=== PATIENT | male | born 1990 | race Asian ===

== ENCOUNTER → 2018-07-20 13:20 | Outpatient (CLI) | payer OTHER, SELFPAY ==
--- NOTE | 2018-07-20 | DI.MRI.S_ITS ---
PROCEDURE: MR ANKLE LT WO CON INDICATIONS: Left heel and lateral ankle pain TECHNIQUE: Noncontrast sagittal T1 spin echo and T2 fast spin echo with fat saturation, axial proton density fast spin echo and T2 fast spin echo with fat saturation, coronal T1 spin echo and T2 fast spin echo with fat saturation through the ankle/hindfoot. COMPARISON: None. FINDINGS: Image quality: Excellent. Bones and joints: No bone marrow contusions or fractures. There is mild edema within the calcaneus adjacent to the sinus tarsi likely representing reactive changes. No hindfoot coalitions. No osteochondral injuries of the talar dome. There is a small tibiotalar joint effusion. Medial structures: The posterior tibialis, flexor digitorum longus, and flexor hallucis longus tendons are intact with trace tenosynovial fluid. The posterior tibial neurovascular bundle appears normal within the tarsal tunnel, without extrinsic mass effect. The deltoid and spring ligaments appear intact. Lateral structures: The anterior talofibular, calcaneofibular, and posterior talofibular ligaments appear intact. More superiorly, the anterior and posterior tibiofibular ligaments appear intact, as is the intermalleolar ligament. The tibiofibular syndesmosis is normal in width at 2 mm or less. The peroneus longus and brevis tendons demonstrate normal location and morphology. Adjacent bony peroneal tubercle and retrotrochlear prominence are normal in size. The sinus tarsi demonstrates some preserved fat signal but there is mild edema with small noted. Findings are compatible with sequelae of ligamentous sprains. The calcaneonavicular and calcaneocuboid components of the bifurcate ligament appear intact. The dorsal calcaneocuboid ligament appears intact. Anterior structures: The tibialis anterior, extensor hallucis longus, and extensor digitorum longus tendons appear intact. The dorsal talonavicular ligament appears intact. Posterior and plantar structures: Achilles tendon is intact. Medial and lateral bands of the plantar fascia are of normal thickness. No abductor digiti quinti muscle atrophy to suggest Esparza neuropathy. IMPRESSION: 1. Mild edema and cystic changes within the sinus tarsi suggesting sequelae of ligamentous sprains. There is also mild adjacent edema in the calcaneus which is likely reactive. 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 Dictated by: Sylvain Main M.D. on 07/20/2018 at 15:41 Approved by: Sylvain Main M.D. on 07/20/2018 at 15:47
== END ==
PROVIDERS: Visit Provider Family Medicine
DX: M25.572 Pain in left ankle and joints of left foot (principal)
CPT/HCPCS: 73721

== ENCOUNTER 2018-08-09 13:40 | Emergency (ER) | payer OTHER, SELFPAY ==
--- NOTE | 2018-08-09 14:04 | ED.URI ---
HPI - URI/Sore Throat <Radha Garcia PA-C - Last Filed: 08/09/18 17:10> General Chief Complaint: Fever Stated Complaint: COUGH FEVER Time Seen by Provider: 08/09/18 13:51 Source: patient Mode of arrival: ambulatory Limitations: no limitations History of Present Illness HPI Narrative: This 28-year-old male comes to ED with 1 month history of cough, which started with wet green sputum, worse in the morning. He states after 2 weeks, he started to have some slight blood tinge in the sputum at times which is now more white and cough is more dry in general. He states at times he has difficulty catching his breath when he is coughing, otherwise no dyspnea or wheeze. He describes some sinus headache at times and headache with coughing. Sometimes notes sore neck muscles. He denies any fever at home. States that he had chills during the 1st couple of weeks at night but now none. He denies nasal drainage. He states he has mild earache bilaterally, has not had sore throat. Normal p.o. intake. No rashes. He denies any exposures or recent travel. He states he saw PCP about 2 weeks ago and was told that his cough is viral. He has tried treating with mjll-kzj-dentrna medications. He is a smoker. No history of asthma or respiratory disease. Vaccines are up-to-date Related Data Previous Rx's Medication Instructions Recorded albuterol sulfate 2 puff INHALATION Q4H PRN #8.5 gram 08/09/18 Review of Systems <Radha Garcia PA-C - Last Filed: 08/09/18 17:10> Review of Systems ROS Unobtainable: All systems reviewed & are unremarkable except as noted in HPI and below PFSH <MARK Sanchez Last Filed: 08/09/18 17:10> Medical History Gout (Chronic) Surgical History History of bunionectomy (Resolved) Status post shoulder surgery (Resolved) Social History Smoking Status: Current every day smoker Social History Smoking Status: Current every day smoker Exam <MARK Sanchez Last Filed: 08/09/18 17:10> Narrative Exam Narrative: GENERAL APPEARANCE: Patient sitting comfortably, in no distress. HEAD: Mild frontal TTP EYES: PERRL, EOMI. EARS: Normal auditory canals, TMS intact with normal light reflexes. ORAL CAVITY: Normal oropharynx. THROAT:Mild erythema and a little PND noted, no exudate NECK/THYROID: Neck supple, full range of motion, shotty anterior cervical lymphadenopathy. LUNGS: Clear to auscultation bilaterally, clear to percussion, frequent dry cough on exam. HEART: RRR without murmur, nl S1, S2, no S3 or S4. Initial Vital Signs Initial Vital Signs: Vital Signs Temperature 98.6 F 08/09/18 14:06 Pulse Rate 91 H 08/09/18 14:06 Respiratory Rate 14 08/09/18 14:06 Blood Pressure 127/85 08/09/18 14:06 Pulse Oximetry 100 08/09/18 14:06 <Thee Maldonado DO - Last Filed: 08/09/18 17:15> Initial Vital Signs Initial Vital Signs: Vital Signs Temperature 98.6 F 08/09/18 14:06 Pulse Rate 91 H 08/09/18 14:06 Respiratory Rate 14 08/09/18 14:06 Blood Pressure 127/85 08/09/18 14:06 Pulse Oximetry 100 08/09/18 14:06 Course <Radha Garcia PA-C - Last Filed: 08/09/18 17:10> Orders Ordered: ED Orders 08/09/18 14:08 Influenza A and B by PCR Rapid Stat 08/09/18 14:37 XR chest 2V Stat Discontinued Medications Albuterol (Ventolin) 2.5 mg INH NOW ONE Stop: 08/09/18 14:38 Last Admin: 08/09/18 15:28 Dose: 2.5 mg Vital Signs - 8 hr 08/09/18 14:06 08/09/18 15:31 08/09/18 15:40 Temperature 98.6 F Pulse Rate 91 H 80 80 Respiratory Rate 14 20 Blood Pressure 127/85 Blood Pressure [Right Arm] 143/80 H Pulse Oximetry 100 98 96 <Thee Maldonado DO - Last Filed: 08/09/18 17:15> Orders Ordered: ED Orders 08/09/18 14:08 Influenza A and B by PCR Rapid Stat 08/09/18 14:37 XR chest 2V Stat Discontinued Medications Albuterol (Ventolin) 2.5 mg INH NOW ONE Stop: 08/09/18 14:38 Last Admin: 08/09/18 15:28 Dose: 2.5 mg Vital Signs - 8 hr 08/09/18 14:06 08/09/18 15:31 08/09/18 15:40 Temperature 98.6 F Pulse Rate 91 H 80 80 Respiratory Rate 14 20 Blood Pressure 127/85 Blood Pressure [Right Arm] 143/80 H Pulse Oximetry 100 98 96 MDM - URI/Sore Throat <Radha Garcia PA-C - Last Filed: 08/09/18 17:10> Lab Data Lab Results 08/09/18 Range/Units 14:08 Influenza A & B (PCR) Positive, type a A (Negative) Imaging Data Chest x-ray: Radiologist's impression: [address] [address] XRay Report Signed Patient: KAROLINA WEATHERS#: [id number] : 1990Acct:[id number] Age/Sex: 28 / MDate of Service: 08/09/18 Loc: Accession Number: [id number] Procedure: XR chest 2V Ordering Provider: Radha Garcia P.A-C PROCEDURE: XR CHEST 2V INDICATIONS: cough x 1 mo, hemoptysis TECHNIQUE: 2 views of the chest were acquired. COMPARISON: None. FINDINGS: Surgical changes and devices: Linear density projecting over the right humeral diaphysis, unknown etiology and may be external to patient. Lungs and pleura: Lungs are clear. No pleural effusions or pneumothorax. Mediastinum: Mediastinal contours are normal. Heart size is normal. Bones and chest wall: No suspicious bony abnormalities. Soft tissues appear unremarkable. IMPRESSION: No acute disease Dictated by: Jean Leo M.D. on 08/09/2018 at 15:17 Approved by: Jean Leo M.D. on 08/09/2018 at 15:18 <Thee Maldonado DO - Last Filed: 08/09/18 17:15> Lab Data Lab Results 08/09/18 Range/Units 14:08 Influenza A & B (PCR) Positive, type a A (Negative) Discharge Plan Departure Patient Disposition: Home Clinical Impression: Influenza Reactive airway disease Qualifiers: Asthma severity: mild Asthma persistence: intermittent Asthma complication type: with acute exacerbation Qualified Code(s): J45.21 - Mild intermittent asthma with (acute) exacerbation Discharge Date/Time: 08/09/18 16:15 Interventions: ED Discharge Assessment Last Done: 08/09/18 16:14 Instructions: DI for Influenza -- Adult, DI for Reactive Airway Disease-Adult Activity Restrictions/Additional Instructions: Please use the inhaler I have prescribed for you as often as needed for cough or tight chest. Use it with the spacer that the respiratory therapist gave you. Take ibuprofen 800 mg every 8 hr as needed for body aches and cough. You can continue any other hyai-amh-redahyt medicines or lozenges that you wish if they are helpful. Please stay home from work until your cough is resolved and you are feeling better. You should plan on being off of work for this week. You should return to the ED right away if you have worsening symptoms such as acute difficulty breathing or high fever is not responding to zezp-buv-qtpmpgx medications. Your testing showed that you have the flu today, however there was not pneumonia or another new problem found on your chest x-ray. You also have reactive airways, which is inflammation in your lungs and airways likely contributing to her cough and tight chest. Since the breathing treatment we gave you helped, I have prescribed an inhaler for you which is the same medicine. Prescriptions: New albuterol sulfate 90 mcg/actuation HFA aerosol inhaler 2 puff INHALATION Q4H PRN (Reason: cough/tight chest) Qty: 8.5 RF: 0 Referrals: [facility] [Provider Group] Stand Alone Forms: Work Release Note <Thee Maldonado, - Last Filed: 08/09/18 17:15> [facility] Attending Madonna Attestation: I was available for consultation during this patient's emergency department encounter
[2018-08-09 14:06] VITALS: BP 127/85; PULSE 91; RESP 14; TEMP 37; O2SAT 100
--- NOTE | 2018-08-09 14:37 | DI.RAD.S_ITS ---
PROCEDURE: XR CHEST 2V INDICATIONS: cough x 1 mo, hemoptysis TECHNIQUE: 2 views of the chest were acquired. COMPARISON: None. FINDINGS: Surgical changes and devices: Linear density projecting over the right humeral diaphysis, unknown etiology and may be external to patient. Lungs and pleura: Lungs are clear. No pleural effusions or pneumothorax. Mediastinum: Mediastinal contours are normal. Heart size is normal. Bones and chest wall: No suspicious bony abnormalities. Soft tissues appear unremarkable. IMPRESSION: No acute disease Dictated by: Jean Leo M.D. on 08/09/2018 at 15:17 Approved by: Jean Leo M.D. on 08/09/2018 at 15:18
--- NOTE | 2018-08-09 14:56 | ED_ITS ---
HPI - URI/Sore Throat <Radha Garcia PA-C - Last Filed: 08/09/18 17:10> General Chief Complaint: Fever Stated Complaint: COUGH FEVER Time Seen by Provider: 08/09/18 13:51 Source: patient Mode of arrival: ambulatory Limitations: no limitations History of Present Illness HPI Narrative: This 28-year-old male comes to ED with 1 month history of cough, which started with wet green sputum, worse in the morning. He states after 2 weeks, he started to have some slight blood tinge in the sputum at times which is now more white and cough is more dry in general. He states at times he has difficulty catching his breath when he is coughing, otherwise no dyspnea or wheeze. He describes some sinus headache at times and headache with coughing. Sometimes notes sore neck muscles. He denies any fever at home. States that he had chills during the 1st couple of weeks at night but now none. He denies nasal drainage. He states he has mild earache bilaterally, has not had sore throat. Normal p.o. intake. No rashes. He denies any exposures or recent travel. He states he saw PCP about 2 weeks ago and was told that his cough is viral. He has tried treating with mlud-kgz-azcrlml medications. He is a smoker. No history of asthma or respiratory disease. Vaccines are up-to-date Related Data Previous Rx's Medication Instructions Recorded albuterol sulfate 2 puff INHALATION Q4H PRN #8.5 gram 08/09/18 Review of Systems <Radha Garcia PA-C - Last Filed: 08/09/18 17:10> Review of Systems ROS Unobtainable: All systems reviewed & are unremarkable except as noted in HPI and below PFSH <MARK Sanchez Last Filed: 08/09/18 17:10> Medical History Gout (Chronic) Surgical History History of bunionectomy (Resolved) Status post shoulder surgery (Resolved) Social History Smoking Status: Current every day smoker Social History Smoking Status: Current every day smoker Exam <MARK Sanchez Last Filed: 08/09/18 17:10> Narrative Exam Narrative: GENERAL APPEARANCE: Patient sitting comfortably, in no distress. HEAD: Mild frontal TTP EYES: PERRL, EOMI. EARS: Normal auditory canals, TMS intact with normal light reflexes. ORAL CAVITY: Normal oropharynx. THROAT:Mild erythema and a little PND noted, no exudate NECK/THYROID: Neck supple, full range of motion, shotty anterior cervical lymphadenopathy. LUNGS: Clear to auscultation bilaterally, clear to percussion, frequent dry cough on exam. HEART: RRR without murmur, nl S1, S2, no S3 or S4. Initial Vital Signs Initial Vital Signs: Vital Signs Temperature 98.6 F 08/09/18 14:06 Pulse Rate 91 H 08/09/18 14:06 Respiratory Rate 14 08/09/18 14:06 Blood Pressure 127/85 08/09/18 14:06 Pulse Oximetry 100 08/09/18 14:06 <Thee Maldonado DO - Last Filed: 08/09/18 17:15> Initial Vital Signs Initial Vital Signs: Vital Signs Temperature 98.6 F 08/09/18 14:06 Pulse Rate 91 H 08/09/18 14:06 Respiratory Rate 14 08/09/18 14:06 Blood Pressure 127/85 08/09/18 14:06 Pulse Oximetry 100 08/09/18 14:06 Course <Radha Garcia PA-C - Last Filed: 08/09/18 17:10> Orders Ordered: ED Orders 08/09/18 14:08 Influenza A and B by PCR Rapid Stat 08/09/18 14:37 XR chest 2V Stat Discontinued Medications Albuterol (Ventolin) 2.5 mg INH NOW ONE Stop: 08/09/18 14:38 Last Admin: 08/09/18 15:28 Dose: 2.5 mg Vital Signs - 8 hr 08/09/18 14:06 08/09/18 15:31 08/09/18 15:40 Temperature 98.6 F Pulse Rate 91 H 80 80 Respiratory Rate 14 20 Blood Pressure 127/85 Blood Pressure [Right Arm] 143/80 H Pulse Oximetry 100 98 96 <Thee Maldonado DO - Last Filed: 08/09/18 17:15> Orders Ordered: ED Orders 08/09/18 14:08 Influenza A and B by PCR Rapid Stat 08/09/18 14:37 XR chest 2V Stat Discontinued Medications Albuterol (Ventolin) 2.5 mg INH NOW ONE Stop: 08/09/18 14:38 Last Admin: 08/09/18 15:28 Dose: 2.5 mg Vital Signs - 8 hr 08/09/18 14:06 08/09/18 15:31 08/09/18 15:40 Temperature 98.6 F Pulse Rate 91 H 80 80 Respiratory Rate 14 20 Blood Pressure 127/85 Blood Pressure [Right Arm] 143/80 H Pulse Oximetry 100 98 96 MDM - URI/Sore Throat <Radha Garcia PA-C - Last Filed: 08/09/18 17:10> Lab Data Lab Results 08/09/18 Range/Units 14:08 Influenza A & B (PCR) Positive, type a A (Negative) Imaging Data Chest x-ray: Radiologist's impression: [address] [address] XRay Report Signed Patient: KAROLINA WEATHERS#: [id number] : 1990Acct:[id number] Age/Sex: 28 / MDate of Service: 08/09/18 Loc: Accession Number: [id number] Procedure: XR chest 2V Ordering Provider: Radha Garcia P.A-C PROCEDURE: XR CHEST 2V INDICATIONS: cough x 1 mo, hemoptysis TECHNIQUE: 2 views of the chest were acquired. COMPARISON: None. FINDINGS: Surgical changes and devices: Linear density projecting over the right humeral diaphysis, unknown etiology and may be external to patient. Lungs and pleura: Lungs are clear. No pleural effusions or pneumothorax. Mediastinum: Mediastinal contours are normal. Heart size is normal. Bones and chest wall: No suspicious bony abnormalities. Soft tissues appear unremarkable. IMPRESSION: No acute disease Dictated by: Jean Leo M.D. on 08/09/2018 at 15:17 Approved by: Jean Leo M.D. on 08/09/2018 at 15:18 <Thee Maldonado DO - Last Filed: 08/09/18 17:15> Lab Data Lab Results 08/09/18 Range/Units 14:08 Influenza A & B (PCR) Positive, type a A (Negative) Discharge Plan Departure Patient Disposition: Home Clinical Impression: Influenza Reactive airway disease Qualifiers: Asthma severity: mild Asthma persistence: intermittent Asthma complication type: with acute exacerbation Qualified Code(s): J45.21 - Mild intermittent asthma with (acute) exacerbation Discharge Date/Time: 08/09/18 16:15 Interventions: ED Discharge Assessment Last Done: 08/09/18 16:14 Instructions: DI for Influenza -- Adult, DI for Reactive Airway Disease-Adult Activity Restrictions/Additional Instructions: Please use the inhaler I have prescribed for you as often as needed for cough or tight chest. Use it with the spacer that the respiratory therapist gave you. Take ibuprofen 800 mg every 8 hr as needed for body aches and cough. You can continue any other eena-khw-ghezwha medicines or lozenges that you wish if they are helpful. Please stay home from work until your cough is resolved and you are feeling better. You should plan on being off of work for this week. You should return to the ED right away if you have worsening symptoms such as acute difficulty breathing or high fever is not responding to nzod-ngc-xnqcamz medications. Your testing showed that you have the flu today, however there was not pneumonia or another new problem found on your chest x-ray. You also have reactive airways, which is inflammation in your lungs and airways likely contributing to her cough and tight chest. Since the breathing treatment we gave you helped, I have prescribed an inhaler for you which is the same medicine. Prescriptions: New albuterol sulfate 90 mcg/actuation HFA aerosol inhaler 2 puff INHALATION Q4H PRN (Reason: cough/tight chest) Qty: 8.5 RF: 0 Referrals: [email or web address] [Provider Group] Stand Alone Forms: Work Release Note <Thee Maldonado, - Last Filed: 08/09/18 17:15> [facility] Att[facility]: I was available for consultation during this patient's emergency department encounter
[2018-08-09] MEDS: ALBUTEROL 2.5 MG/3 ML NEB (ADULT) INH (15:28)
[2018-08-09 15:31] VITALS: PULSE 80; O2SAT 98
[2018-08-09 15:40] VITALS: BP 143/80; PULSE 80; RESP 20; O2SAT 96
== END 2018-08-09 16:15 | disposition home or self-care (01) ==
PROVIDERS: Emergency Provider Internal Medicine
DX: J45.21 Mild intermittent asthma with (acute) exacerbation (principal); J11.1 Influenza due to unidentified influenza virus with other respiratory manifestations
CPT/HCPCS: 71046; 87400; 94640; 99282; 99284; J7613

== ENCOUNTER 2023-10-25 11:56 | Emergency (ER) | payer OTHER, SELFPAY ==
[2023-10-25] VITALS (13 sets, daily range): BP systolic 102–129; BP diastolic 61–85; PULSE 48–70; RESP 12–28; TEMP 36.6–37; O2SAT 91–100; BMI 29.8
--- NOTE | 2023-10-25 12:06 | DI.RAD.S_ITS ---
PROCEDURE: XR CHEST 1V INDICATIONS: chest pain TECHNIQUE: One view of the chest was acquired. COMPARISON: [facility], CR, XR CHEST 2V, 08/09/2018, 14:49. FINDINGS: Surgical changes and devices: None. Lungs and pleura: Lungs are clear. No pleural effusions or pneumothorax. Mediastinum: Mediastinal contours appear normal. Heart size is normal. Bones and chest wall: No suspicious bony lesions. Overlying soft tissues appear unremarkable. IMPRESSION: No acute cardiopulmonary abnormality is seen. Dictated by: Levy Rousseau M.D. on 10/25/2023 at 13:13 Approved by: Levy Rousseau M.D. on 10/25/2023 at 13:13
--- NOTE | 2023-10-25 12:33 | DI.CT.S_ITS ---
PROCEDURE: CT ABDOMEN PELVIS W CON INDICATIONS: LUQ, epigastric pain TECHNIQUE: After the administration of intravenous contrast, axial sections acquired from the lung bases to the pubic symphysis. Coronal and sagittal reformats were performed. For radiation dose reduction, the following was used: automated exposure control, adjustment of mA and/or kV according to patient size. COMPARISON: None. FINDINGS: Image quality: Diagnostic. Lower Chest: No significant findings. ABDOMEN: Liver: No solid mass. Gallbladder: No radiopaque gallstones or wall thickening. Biliary ducts: No biliary dilation. Pancreas: No ductal dilation. Spleen: Size is within normal limits. Adrenal Glands: No adrenal nodules. Kidneys and Ureters: No hydronephrosis. No solid mass. No complex renal cystic lesion which requires follow up. Stomach and Bowel: Question small distal antral/pyloric ulcer. This is not definite. Normal colonic caliber, without significant wall thickening. Normal appendix. Peritoneum: No abnormal intraperitoneal fluid. No free air. Ventral Wall: No significant ventral hernia. Abdominal Nodes: No retroperitoneal or mesenteric adenopathy by size criteria. Vessels: Aorta and inferior vena cava are normal in size. PELVIS: Pelvic Organs: Unremarkable. Bladder: No bladder wall thickening, accounting for underdistention. Pelvic Nodes: No enlarged lymph nodes. Miscellaneous: No inguinal hernias are seen. Bones: No aggressive osseous abnormality. IMPRESSION: Possible small distal antral/pyloric posterior ulcer. This is not definite. Recommend correlation for presence or absence of symptoms of peptic ulcer disease or gastritis. Otherwise unremarkable study. Dictated by: James Tao M.D. on 10/25/2023 at 13:16 Approved by: James Tao M.D. on 10/25/2023 at 13:37
[2023-10-25 12:34] LABS: Add Manual Diff / Slide Review NO; Basophils Absolute Auto 0 /uL (0-100); Basophils Percent Auto 0.5 % (0-2); Eosinophils Absolute Auto 0 /uL (0-450); Eosinophils Percent Auto 0.8 % (2-4); Hemoglobin 14.9 g/dL (13.5-17.5); Lymphocytes Absolute Auto 2400 /uL (1100-4500); Lymphocytes Percent Auto 40.8 % (25-40); Mean Corpuscular HGB Conc 34.7 % (30-36); Mean Corpuscular Hemoglobin 32.9 PG (26-34); Mean Corpuscular Volume 94.9 fL (80-100); Monocytes Absolute Auto 700 /uL (0-900); Monocytes Percent Auto 11.6 % (3-14); Neutrophils Absolute Auto 2800 /uL (1500-7000); Neutrophils Percent Auto 46.3 % (50-75); Platelet Count 288 X10^3/uL (150-400); Red Blood Cell Count 4.53 X10^6/uL (4.5-5.9); Red Cell Distribution Width 12.4 % (11.6-14.8)
--- NOTE | 2023-10-25 12:37 | ED.CHESTPAIN ---
HPI - Chest Pain <Kalee Thomas PA-C - Last Filed: 10/25/23 16:56> General Chief Complaint: Chest Pain Stated Complaint: CHEST PAIN Time Seen by Provider: 10/25/23 12:14 Source: patient Mode of arrival: Ambulatory History of Present Illness HPI narrative: 33-year-old male past medical history anxiety presents to the ED with 1 week of substernal chest pain and shortness of breath. 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 Patient states that it was a difficult deployment and very stressful for him. Patient is now extremely anxious and stressed, anticipating that he might get redeployed any moment now. Patient feels anxious about leaving his family behind and uncertain about his safety while on deployment. Patient is scheduled to see a mental health counselor later this week for a PTSD evaluation. Patient states that he has had intermittent chest pain ever since he got deployed last year. Patient denies any flu-like symptoms including runny nose, cough, fever, chills. Patient denies that the pain radiates. Patient denies nausea, vomiting. Patient also endorses intermittent right upper quadrant pain. Unclear what exacerbating or alleviating factors. Patient does endorse that there is a risk of early cardiac deaths in his family with his grandfather and uncle. Patient does have a very anxious affect. Patient also endorses a headache that started this morning. Patient has not taken any medicines for it. Related Data Previous Rx's Medication Instructions Recorded albuterol sulfate 90 mcg/actuation 2 puff inhalation Q4H PRN 08/09/18 aerosol inhaler cough/tight chest #8.5 grams Allergies Allergy/AdvReac Type Severity Reaction Status Date / Time No Known Drug Allergies Allergy Verified 10/25/23 12:06 Review of Systems <Kalee Thomas PA-C - Last Filed: 10/25/23 16:56> Constitutional Constitutional: Denies chills, Denies fatigue, Denies fever(s), Denies frequent falls, Denies lethargy and Denies weakness Eyes Eyes: Denies change in vision, Denies eye discharge, Denies irritation and Denies loss of vision ENT Ears, Nose, Mouth, and Throat: Denies change in voice, Denies dizziness, Denies neck pain, Denies sore throat and Denies throat swelling Cardiovascular Cardiovascular: Reports chest pain, Denies irregular heart rhythm, Denies lightheadedness, Denies palpitations, Denies dyspnea, Denies dyspnea on exertion and Denies orthopnea Respiratory Respiratory: Denies cough, Denies dyspnea, Denies dyspnea on exertion and Denies wheezing Gastrointestinal Gastrointestinal: Reports abdominal pain, Denies change in bowel habits, Denies diarrhea, Denies nausea and Denies vomiting Musculoskeletal Musculoskeletal: Denies neck pain and Denies numbness Integumentary/Breasts Skin/Breast: Denies pruritus, Denies erythema, Denies rash and Denies wounds Neurologic Neurologic: Denies behavioral changes, Denies confusion, Denies dizziness, Denies frequent falls, Denies loss of vision, Denies numbness and Denies weakness Psychiatric Psychiatric: Reports anxiety, Denies behavioral changes, Denies confusion, Denies depression, Denies homicidal ideation and Denies suicidal ideation Endocrine Endocrine: Denies fatigue, Denies flushing and Denies palpitations Hematologic/Lymphatic Hematologic/Lymphatic: Denies easy bruising Allergic/Immunologic Allergic/Immunologic: Denies urticaria, Denies throat swelling and Denies wheezing Patient History <Kalee Thomas PA-C - Last Filed: 10/25/23 16:56> Medical History (Updated 10/25/23 @ 16:00 by Kalee Thomas PA-C) Gout Surgical History (Updated 08/09/18 @ 14:59 by Radha Garcia PA-C) Status post shoulder surgery History of bunionectomy Social History (Updated 08/09/18 @ 14:59 by Radha Garcia PA-C) Smoking Status: Current every day smoker Smoking Status: Current every day smoker tobacco type: smokeless tobacco alcohol intake frequency: a few times a week Substance Use Type: does not use Exam <Kalee Thomas PA-C - Last Filed: 10/25/23 16:56> Narrative Exam Narrative: Const General:?cooperative, healthy appearing and comfortable [facility] Head:?normal to inspection Ears:?hearing grossly normal bilaterally Nose:?external nose normal Face and sinus:?normal facial exam and sinuses nontender Mouth:?oral mucosae normal Throat:?posterior oropharynx normal Eyes General:?appearance normal, both eyes and all related structures Neck Neck:?normal visual inspection and no lymphadenopathy noted Resp Effort & Inspection:?normal respiratory effort Auscultation:?clear to auscultation bilaterally Cardio Rate:?regular rate Rhythm:?regular rhythm Neuro General:?patient alert, patient awake and patient oriented x3 Initial Vital Signs Initial Vital Signs: Vital Signs Temperature 98.1 F 10/25/23 12:03 Pulse Rate 67 10/25/23 12:03 Respiratory Rate 12 10/25/23 12:03 Blood Pressure 121/82 10/25/23 12:03 Pulse Oximetry 100 10/25/23 12:03 Oxygen Delivery Method Room Air 10/25/23 12:03 <Makenzie Shah MD - Last Filed: 10/25/23 17:03> Initial Vital Signs Initial Vital Signs: Vital Signs Temperature 98.1 F 10/25/23 12:03 Pulse Rate 67 10/25/23 12:03 Respiratory Rate 12 10/25/23 12:03 Blood Pressure 121/82 10/25/23 12:03 Pulse Oximetry 100 10/25/23 12:03 Oxygen Delivery Method Room Air 10/25/23 12:03 Scores <Kalee Thomas PA-C - Last Filed: 10/25/23 16:56> HEART Score Heart Score history: Slightly Suspicious Heart Score EKG: Normal Heart Score Age: < 45 years old Heart Score risk factors: 1-2 risk factors Heart Score troponin: < or = to normal limit Heart Score Total: 1 <Makenzie Shah MD - Last Filed: 10/25/23 17:03> HEART Score Heart Score Total: 1 Course <Kalee Thomas PA-C - Last Filed: 10/25/23 16:56> Orders Ordered: ED Orders 10/25/23 12:06 XR chest 1V Stat EKG-12 Lead Stat 10/25/23 12:20 Complete Blood Count AUTO DIFF Stat Comprehensive Metabolic Panel Stat Lipase Stat Magnesium Stat PTT Partial Thromboplastin Jayce Stat Prothrombin Time INR Stat Troponin & CK Cardiac Panel Stat 10/25/23 12:33 CT abdomen pelvis w con Stat 10/25/23 13:59 US abdomen limited Stat 10/25/23 14:35 Troponin & CK Cardiac Panel Stat Discontinued Medications Acetaminophen (Acetaminophen 325 Mg Tablet) 975 mg PO NOW ONE Stop: 10/25/23 12:35 Last Admin: 10/25/23 12:52 Dose: 975 mg Documented By: LON Aspirin (Aspirin 81 Mg Chew Tab) 324 mg PO NOW ONE Stop: 10/25/23 12:07 Last Admin: 10/25/23 13:18 Dose: Not Given Documented By: LON Famotidine (Famotidine 20 Mg/2 Ml Vial) 40 mg IV NOW EDGARDO Last Admin: 10/25/23 14:37 Dose: 40 mg Documented By: LON Hydroxyzine HCl (Hydroxyzine Hcl 25 Mg Tablet) 25 mg PO NOW ONE Stop: 10/25/23 12:35 Last Admin: 10/25/23 12:51 Dose: 25 mg Documented By: LON Pantoprazole Sodium (Pantoprazole 40 Mg Vial) 40 mg IV NOW ONE Stop: 10/25/23 14:00 Last Admin: 10/25/23 14:37 Dose: 40 mg Documented By: LON Vital Signs Vital signs: Vital Signs - 8 hr 10/25/23 12:03 10/25/23 12:23 10/25/23 12:30 Temperature 98.1 F Pulse Rate 67 64 70 Respiratory Rate 12 18 26 H Blood Pressure 121/82 Pulse Oximetry 100 100 100 Oxygen Delivery Method Room Air 10/25/23 12:33 10/25/23 12:33 10/25/23 12:44 Temperature Pulse Rate 62 Respiratory Rate 26 H Blood Pressure 129/85 117/77 Pulse Oximetry 100 Oxygen Delivery Method 10/25/23 12:44 10/25/23 13:04 10/25/23 13:05 Temperature Pulse Rate 63 62 Respiratory Rate 28 H 18 Blood Pressure 119/79 Pulse Oximetry 93 91 Oxygen Delivery Method 10/25/23 13:05 10/25/23 13:16 10/25/23 13:16 Temperature Pulse Rate 60 62 Respiratory Rate 15 12 Blood Pressure 119/79 Pulse Oximetry 100 100 Oxygen Delivery Method 10/25/23 13:30 10/25/23 14:00 10/25/23 14:01 Temperature Pulse Rate 62 49 L 54 L Respiratory Rate 15 15 14 Blood Pressure Pulse Oximetry 100 98 98 Oxygen Delivery Method 10/25/23 14:01 10/25/23 15:52 10/25/23 16:19 Temperature 98 F 98.6 F Pulse Rate 48 L 51 L Respiratory Rate 20 20 Blood Pressure 102/61 102/61 106/84 Pulse Oximetry 100 100 Oxygen Delivery Method Room Air Room Air <Makenzie Shah MD - Last Filed: 10/25/23 17:03> Orders Ordered: ED Orders 10/25/23 12:06 XR chest 1V Stat EKG-12 Lead Stat 10/25/23 12:20 Complete Blood Count AUTO DIFF Stat Comprehensive Metabolic Panel Stat Lipase Stat Magnesium Stat PTT Partial Thromboplastin Jayce Stat Prothrombin Time INR Stat Troponin & CK Cardiac Panel Stat 10/25/23 12:33 CT abdomen pelvis w con Stat 10/25/23 13:59 US abdomen limited Stat 10/25/23 14:35 Troponin & CK Cardiac Panel Stat Discontinued Medications Acetaminophen (Acetaminophen 325 Mg Tablet) 975 mg PO NOW ONE Stop: 10/25/23 12:35 Last Admin: 10/25/23 12:52 Dose: 975 mg Documented By: LON Aspirin (Aspirin 81 Mg Chew Tab) 324 mg PO NOW ONE Stop: 10/25/23 12:07 Last Admin: 10/25/23 13:18 Dose: Not Given Documented By: LON Famotidine (Famotidine 20 Mg/2 Ml Vial) 40 mg IV NOW EDGARDO Last Admin: 10/25/23 14:37 Dose: 40 mg Documented By: LON Hydroxyzine HCl (Hydroxyzine Hcl 25 Mg Tablet) 25 mg PO NOW ONE Stop: 10/25/23 12:35 Last Admin: 10/25/23 12:51 Dose: 25 mg Documented By: LON Pantoprazole Sodium (Pantoprazole 40 Mg Vial) 40 mg IV NOW ONE Stop: 10/25/23 14:00 Last Admin: 10/25/23 14:37 Dose: 40 mg Documented By: LON Vital Signs Vital signs: Vital Signs - 8 hr 10/25/23 12:03 10/25/23 12:23 10/25/23 12:30 Temperature 98.1 F Pulse Rate 67 64 70 Respiratory Rate 12 18 26 H Blood Pressure 121/82 Pulse Oximetry 100 100 100 Oxygen Delivery Method Room Air 10/25/23 12:33 10/25/23 12:33 10/25/23 12:44 Temperature Pulse Rate 62 Respiratory Rate 26 H Blood Pressure 129/85 117/77 Pulse Oximetry 100 Oxygen Delivery Method 10/25/23 12:44 10/25/23 13:04 10/25/23 13:05 Temperature Pulse Rate 63 62 Respiratory Rate 28 H 18 Blood Pressure 119/79 Pulse Oximetry 93 91 Oxygen Delivery Method 10/25/23 13:05 10/25/23 13:16 10/25/23 13:16 Temperature Pulse Rate 60 62 Respiratory Rate 15 12 Blood Pressure 119/79 Pulse Oximetry 100 100 Oxygen Delivery Method 10/25/23 13:30 10/25/23 14:00 10/25/23 14:01 Temperature Pulse Rate 62 49 L 54 L Respiratory Rate 15 15 14 Blood Pressure Pulse Oximetry 100 98 98 Oxygen Delivery Method 10/25/23 14:01 10/25/23 15:52 10/25/23 16:19 Temperature 98 F 98.6 F Pulse Rate 48 L 51 L Respiratory Rate 20 20 Blood Pressure 102/61 102/61 106/84 Pulse Oximetry 100 100 Oxygen Delivery Method Room Air Room Air MDM - Chest Pain <Kalee Thomas PA-C - Last Filed: 10/25/23 16:56> Lab Data 10/25/23 12:20 10/25/23 12:20 Labs: Lab Results 10/25/23 10/25/23 Range/Units 12:20 14:35 WBC 6.0 (4.5-11.0) X10^3/uL RBC 4.53 (4.5-5.9) X10^6/uL Hgb 14.9 (13.5-17.5) g/dL Hct 43.0 (41-53) % MCV 94.9 (80-100) fL MCH 32.9 (26-34) PG MCHC 34.7 (30-36) % RDW 12.4 (11.6-14.8) % Plt Count 288 (150-400) X10^3/uL Neut % (Auto) 46.3 L (50-75) % Lymph % (Auto) 40.8 H (25-40) % [place] % (Auto) 11.6 (3-14) % Eos % (Auto) 0.8 L (2-4) % Baso % (Auto) 0.5 (0-2) % Neut # (Auto) 2800 (5443-0380) /uL Lymph # (Auto) 2400 (4375-9446) /uL [place] # (Auto) 700 (0-900) /uL Eos # (Auto) 0 (0-450) /uL Baso # (Auto) 0 (0-100) /uL PT 10.9 (9.4-12.5) SECONDS INR 1.0 (0.9-1.3) APTT 38 H (25.1-36.5) SECONDS Sodium 140 (137-145) mmol/L Potassium 4.0 (3.4-5.1) mmol/L Chloride 103 (98-107) mmol/L Carbon Dioxide 27 (22-32) mmol/L BUN 17 (9-20) mg/dL Creatinine 1.00 (0.66-1.25) mg/dL Estimated GFR > 60 (>60) mL/min BUN/Creatinine Ratio 17.0 (6-22) Glucose 80 (70-100) mg/dL Calcium 10.1 (8.4-10.2) mg/dL Magnesium 2.1 (1.6-2.3) mg/dL Total Bilirubin 0.6 (0.2-1.3) mg/dL AST 35 (17-59) IU/L ALT 48 (<50) IU/L Alkaline Phosphatase 75 (38-126) U/L Total Creatine Kinase 94 86 (55-170) U/L Troponin I < 0.012 < 0.012 (0.01-0.034) ng/mL Total Protein 8.1 (6.3-8.2) g/dL Albumin 5.1 H (3.5-5.0) g/dL Globulin 3.0 (1.7-4.1) g/dL Albumin/Globulin Ratio 1.7 (1.0-2.8) Lipase 85 (23-300) U/L MDM Narrative Medical decision making narrative: 33-year-old male past medical history anxiety presents to the ED with 1 week of substernal chest pain and shortness of breath. Concern for ACS versus GERD versus PUD versus pancreatitis versus cholecystitis versus cholelithiasis versus other. Will obtain chest x-ray, EKG, labs, troponin, lipase, CT abdomen pelvis, ultrasound RUQ. Will give Tylenol, hydroxyzine. Will reassess. Labs within normal limits. Troponin x2 within normal limits. Chest x-ray and EKG without acute findings. EKG is normal sinus rhythm with no acute ST-T changes, no axis deviations. Heart score 1 for early cardiac deaths in the family. Safe for d/c. CT abdomen pelvis shows possible small distal antral/pyloric posterior ulcer. Ultrasound abdomen without acute findings. Patient was given Pepcid AC and pantoprazole in the ED. Recommend patient take omeprazole daily to help heal the ulcer. Recommend follow-up with GI as soon as possible for further evaluation, EGD. Recommend refraining from NSAIDs, aspirin, alcohol, coffee. ED return precautions were discussed with patient. Patient verbalized understanding. Medical records reviewed: Yes <Makenzie Shah MD - Last Filed: 10/25/23 17:03> Lab Data Labs: Lab Results 10/25/23 10/25/23 Range/Units 12:20 14:35 WBC 6.0 (4.5-11.0) X10^3/uL RBC 4.53 (4.5-5.9) X10^6/uL Hgb 14.9 (13.5-17.5) g/dL Hct 43.0 (41-53) % MCV 94.9 (80-100) fL MCH 32.9 (26-34) PG MCHC 34.7 (30-36) % RDW 12.4 (11.6-14.8) % Plt Count 288 (150-400) X10^3/uL Neut % (Auto) 46.3 L (50-75) % Lymph % (Auto) 40.8 H (25-40) % [place] % (Auto) 11.6 (3-14) % Eos % (Auto) 0.8 L (2-4) % Baso % (Auto) 0.5 (0-2) % Neut # (Auto) 2800 (3231-5712) /uL Lymph # (Auto) 2400 (7440-4946) /uL [place] # (Auto) 700 (0-900) /uL Eos # (Auto) 0 (0-450) /uL Baso # (Auto) 0 (0-100) /uL PT 10.9 (9.4-12.5) SECONDS INR 1.0 (0.9-1.3) APTT 38 H (25.1-36.5) SECONDS Sodium 140 (137-145) mmol/L Potassium 4.0 (3.4-5.1) mmol/L Chloride 103 (98-107) mmol/L Carbon Dioxide 27 (22-32) mmol/L BUN 17 (9-20) mg/dL Creatinine 1.00 (0.66-1.25) mg/dL Estimated GFR > 60 (>60) mL/min BUN/Creatinine Ratio 17.0 (6-22) Glucose 80 (70-100) mg/dL Calcium 10.1 (8.4-10.2) mg/dL Magnesium 2.1 (1.6-2.3) mg/dL Total Bilirubin 0.6 (0.2-1.3) mg/dL AST 35 (17-59) IU/L ALT 48 (<50) IU/L Alkaline Phosphatase 75 (38-126) U/L Total Creatine Kinase 94 86 (55-170) U/L Troponin I < 0.012 < 0.012 (0.01-0.034) ng/mL Total Protein 8.1 (6.3-8.2) g/dL Albumin 5.1 H (3.5-5.0) g/dL Globulin 3.0 (1.7-4.1) g/dL Albumin/Globulin Ratio 1.7 (1.0-2.8) Lipase 85 (23-300) U/L Discharge Plan Departure Patient Disposition: Home Clinical Impression: Chest pain Qualifiers: Chest pain type: unspecified Qualified Code(s): R07.9 - Chest pain, unspecified Peptic ulcer of stomach Qualifiers: Gastric ulcer chronicity: unspecified ulcer chronicity Qualified Code(s): K25.9 - Gastric ulcer, unspecified as acute or chronic, without hemorrhage or perforation Instructions: DI for Gastric Ulcer Activity Restrictions/Additional Instructions: You were evaluated in the ED today for chest pain and shortness of breath. Your chest x-ray, EKG and labs were normal. The CT scan of the abdomen does show a possible small gastric ulcer. Please follow-up with a healthcare risk control consultant or GI specialist as soon as possible for further evaluation and endoscopy. You were given some antacids in the ED today for acid reduction to help with healing the ulcer. Please take 40 mg of omeprazole once daily until you see the GI specialist. This is available [id number] at drug stores. Please avoid alcohol, ibuprofen, Aleve, aspirin, coffee since it can aggravate the ulcer. Return to the ED if you have worsening symptoms, persistent vomiting. Prescriptions: No Action albuterol sulfate 90 mcg/actuation HFA aerosol inhaler 2 puff INHALATION Q4H PRN (Reason: cough/tight chest) Qty: 8.5 0RF Rx Instructions: use q2-4h prn. Use with spacer. Ok to subst. Stand Alone Forms: Patient Portal/API ED Sign-out <Mkaenzie Shah MD - Last Filed: 10/25/23 17:03> Cosign ED Attending Cosignature Attestation: I was immediately available in the department for consultation throughout this patient's visit. Makenzie Shah MD
[2023-10-25 12:38] LABS: Prothrombin Time 10.9 SECONDS (9.4-12.5)
[2023-10-25 12:40] LABS: PTT Partial Thromboplastin Tim 38 SECONDS (25.1-36.5)
[2023-10-25 12:43] LABS: Alanine Aminotransferase 48 IU/L (<50); Albumin 5.1 g/dL (3.5-5.0); Albumin Globulin Ratio 1.7 (1.0-2.8); Alkaline Phosphatase 75 U/L (38-126); Aspartate Aminotransferase 35 IU/L (17-59); Bilirubin Total 0.6 mg/dL (0.2-1.3); Blood Urea Nitrogen 17 mg/dL (9-20); Calcium 10.1 mg/dL (8.4-10.2); Carbon Dioxide 27 mmol/L (22-32); Chloride 103 mmol/L (98-107); Creatine Kinase 94 U/L (55-170); Estimated Glomerular Filt Rate > 60 mL/min (>60); Glucose 80 mg/dL (70-100); HEMOLYSIS < 15 (0-50); Lipase 85 U/L (23-300); Magnesium 2.1 mg/dL (1.6-2.3); Sodium 140 mmol/L (137-145); Total Protein 8.1 g/dL (6.3-8.2)
[2023-10-25] MEDS: hydrOXYzine HCL 25 MG TABLET PO (12:51)
[2023-10-25] MEDS: ACETAMINOPHEN 325 MG TABLET 975 MG PO (12:52)
[2023-10-25 12:55] LABS: Troponin I < 0.012 ng/mL (0.01-0.034)
--- NOTE | 2023-10-25 13:02 | PC.NURSE ---
Pt states that he has been having off and on substernal cp that radiates down his neck and into his stomach. 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 Pt has increased stress in his life due to the possibility of being deployed and the uncertainty of when he will get to come home if that should happen. Pt a&ox4. Overall demeanor anxious. Pt states that he has 5/10 abd pain and has some guarding over the LUQ.
--- NOTE | 2023-10-25 13:59 | DI.US.S_ITS ---
PROCEDURE: US ABDOMEN LIMITED INDICATIONS: ruq pain TECHNIQUE: Real-time scanning was performed of the abdominal and retroperitoneal organs, with image documentation. COMPARISON: [facility], CT, CT ABDOMEN PELVIS W CON, 10/25/2023, 13:11. FINDINGS: Liver: Slightly increased liver echogenicity. No solid mass. Gallbladder: No gallstones. No wall thickening. No pericholecystic edema. Negative sonographic Orona's sign. Biliary ducts: Intrahepatic bile ducts are non-dilated. Extrahepatic bile duct caliber measures 2 mm. Normal is 6-7 mm or less in diameter, or 10 mm or less post-cholecystectomy. Pancreas: Visualized portions of the pancreas are sonographically normal. Miscellaneous: No free abdominal fluid. IMPRESSION: No acute abnormality. No gallbladder pathology. Increased liver echogenicity, likely mild hepatic steatosis. Dictated by: Víctor Win M.D. on 10/25/2023 at 14:50 Approved by: Víctor Win M.D. on 10/25/2023 at 14:51
[2023-10-25] MEDS: FAMOTIDINE 20 MG/2 ML VIAL 40 MG IV (14:37)
[2023-10-25] MEDS: PANTOPRAZOLE 40 MG VIAL IV (14:37)
[2023-10-25 14:56] LABS: Creatine Kinase 86 U/L (55-170)
[2023-10-25 15:09] LABS: Troponin I < 0.012 ng/mL (0.01-0.034)
== END 2023-10-25 16:22 | disposition home or self-care (01) ==
PROVIDERS: Emergency Medicine; Emergency Provider Student in an Organized Health Care Education/Training Program
DX: R07.9 Chest pain, unspecified (principal); K25.9 Gastric ulcer, unspecified as acute or chronic, without hemorrhage or perforation; R06.02 Shortness of breath
CPT/HCPCS: 36415; 71045; 74177; 76705; 80053; 82550; 83690; 83735; 84484; 85025; 85610; 85730; 93005; 96374; 96375; 99284; A9270; C9113; Q9967

== ENCOUNTER → 2023-11-30 07:13 | Outpatient (CLI) | payer OTHER, SELFPAY ==
--- NOTE | 2023-11-30 07:15 | DI.MRI.S_ITS ---
PROCEDURE: MR ANKLE LT WO CON INDICATIONS: Pain in left ankle and joints of left foot TECHNIQUE: Noncontrast sagittal T1 spin echo and T2 fast spin echo with fat saturation, axial proton density fast spin echo and T2 fast spin echo with fat saturation, coronal T1 spin echo and T2 fast spin echo with fat saturation through the ankle/hindfoot. COMPARISON: [facility], MR, MR ANKLE LEFT WITHOUT CONTRAST, 03/20/2019, 15:12. [facility], MR, MR ANKLE LEFT WITH/WITHOUT CONTRAST, 03/30/2019, 10:32. [facility], MR, MR ANKLE LT WO CON, 07/20/2018, 14:04. FINDINGS: Image quality: Excellent Tendons: The flexors, in the extensor tendons are unremarkable. The peroneal tendons are unremarkable. Mild tendinosis of the distal Achilles tendon, without tear. Ligaments: The anterior and the posterior tibiofibular ligaments are intact. The anterior and posterior talofibular ligaments are intact. The calcaneofibular ligament is intact. The deep portion of the deltoid ligament is unremarkable. Sinus tarsi: No fibrosis. Plantar fascia: Unremarkable Muscles: Unremarkable Bones: No marrow edema. No acute fracture. Small tibiotalar effusion. Steida process is noted. A bone island is seen in the neck of the calcaneus. IMPRESSION: 1. Mild tendinosis distal Achilles tendon, without tear. Dictated by: Darline Nova M.D. on 11/30/2023 at 20:18 Approved by: Darline Nova M.D. on 11/30/2023 at 20:26
== END ==
LOC: MRI 07:14
PROVIDERS: Referring Provider Podiatrist; Visit Provider Podiatrist
DX: M25.372 Other instability, left ankle (principal); M25.572 Pain in left ankle and joints of left foot
CPT/HCPCS: 73721

== ENCOUNTER 2024-02-14 08:12 | Day surgery (SDC) | payer OTHER, SELFPAY ==
--- NOTE | 2024-02-14 | PATH_ITS ---
[facility] Accession Number: [id number] No. of containers..04 Tissue . 01 Material submitted: . PART A: duodenum - DUODENUM PART B: duodenum bulb - DUODENAL BULB PART C: gastrointestinal site - ANTRUM PART D: gastrointestinal site - CARDIA . 01 Diagnosis: Part A: DUODENUM: Duodenal mucosa with no diagnostic alterations. No active inflammation and no evidence of celiac disease. . Part B: DUODENAL BULB: Duodenal mucosa with focal erosion. No evidence of celiac disease. No infectious organisms, dysplasia, or malignancy identified. See comment. . Specimen Comments: The features raise a differential including peptic duodenitis or NSAID-induced injury, among other possibilities. . Part C: ANTRUM: Gastric mucosa with mild chronic inflammation, focal intestinal metaplasia, and features of reactive gastropathy. No Helicobacter organisms identified. No dysplasia or malignancy identified. . Part D: CARDIA: Glandular with mild chronic inflammation and moderate reactive foveolar hyperplasia. No goblet cell metaplasia, dysplasia, or malignancy identified. No Helicobacter organisms identified. [facility] 02/16/2024 1940 Local . 01 Comment: Parts C, D: An immunohistochemical stain was performed to evaluate for Helicobacter organisms and is negative. The control stains appropriately. * This test was developed and its performance characteristics determined by [facility]. It has not been cleared or approved by the U.S. Food and Drug Administration. The FDA has determined that such clearance or approval is not necessary. This test is used for clinical purposes. It should not be regarded as investigational or for research. . 01 Electronically signed: . Sylvain Maguire MD, Pathologist NPI- [id number] . 01 Gross description: . A. Received in formalin with two patient identifiers and duodenum, are two huffman soft tissue fragments, 0.3 to 0.4 cm in greatest dimension. Submitted in A1. . B. Received in formalin with two patient identifiers and duodenal bulb is a single huffman soft tissue fragment, 0.4 cm in greatest dimension. Submitted in B1. . C. Received in formalin with two patient identifiers and antrum, is a single huffman soft tissue fragment, 0.3 cm in greatest dimension. Submitted in C1. . D. Received in formalin with two patient identifiers and cardia, is a single huffman soft tissue fragment, 0.4 cm in greatest dimension. Submitted in D1. ([id number]) /MRV 02/16/2024 1939 Local . 01 Pathologist provided ICD-10: K20.90, K29.60, K29.80 . 01 CPT . 432047, 891183, 071233, [id number], [id number] Specimen Comment: A courtesy copy of this report has been sent to [phone] Performed at: [address] [facility] [address], [place], [place] [id number] MD Sylvain Maguire MD Phone: [phone]
[2024-02-14 08:30] VITALS: BP 105/72; PULSE 60; RESP 16; TEMP 36.3; O2SAT 99
[2024-02-14] MEDS: LACTATED RINGERS 1,000 ML 42 ML IV (08:42)
--- NOTE | 2024-02-14 09:14 | P.HP_ITS ---
History of Present Illness History of Present Illness Date Patient Seen: 02/14/24 Time Patient Seen: 09:14 Chief complaint: SDC Narrative: 34-year-old male with symptoms of reflux abdominal pain chest pain that do not seem to be responsive to omeprazole. I reviewed the recent clinic note with Deng King. No other changes. [facility] Medical History Gout Surgical History Status post shoulder surgery History of bunionectomy Social History Smoking Status: Former smoker alcohol intake: current Meds Home Medications and Allergies Home Medications Medication Instructions Recorded Confirmed Type albuterol sulfate 90 mcg/actuation 2 puff inhalation Q4H PRN 08/09/18 Rx aerosol inhaler cough/tight chest #8.5 grams allopurinol 300 mg tablet 300 mg PO DAILY 02/14/24 02/14/24 History Allergies Allergy/AdvReac Type Severity Reaction Status Date / Time latex Allergy Blister Verified 02/14/24 08:23 Review of Systems Review of Systems ROS: Yes All systems reviewed with the patient and are negative except as otherwise documented Exam Vital Signs (past 8 hours): - 02/14/24 08:30 Temperature 97.4 F L Pulse Rate 60 Respiratory Rate 16 Blood Pressure 105/72 Pulse Oximetry 99 Oxygen Delivery Method Room Air Oxygen Flow Rate 0 Oxygen Delivery Method Room Air Oxygen Flow Rate 0 Const General: cooperative HENMT Head: normal to inspection Eyes General: appearance normal, both eyes and all related structures Neck Neck: normal visual inspection Chest Chest: normal inspection of the chest Resp Effort & Inspection: normal respiratory effort Cardio Rate: regular rate GI Inspection: normal to inspection Skin General: no rashes or lesions noted Neuro General: patient alert and patient awake Extrem General: normal to inspection and no pedal edema Psych Appearance: grossly normal Assessment & Plan Assessment & Plan narrative: 34-year-old male with symptoms of bloating, right upper quadrant abdominal pain chest pain and GERD refractory to PPI. Diagnostic EGD is pursued today. Time-Based Coding :: [TOTAL MINUTES] spent with patient and on the chart (including review of chart, obtaining history, exam, reviewing outside data, placing orders, documenting exam and treatment plan, and counseling patient) on [DATE].
--- NOTE | 2024-02-14 09:16 | PM.PREOP ---
Pre-operative Note Interval Note History & Physical reviewed/Exam performed by Physician: Yes Changes to H&P: No ASA Class (for procedural sedation): II
--- NOTE | 2024-02-14 09:56 | PM.OP.EGD ---
Operative Date/Time/Diagnoses Date of procedure: 02/14/24 Time of procedure: 09:56 Pre-op diagnosis: GERD, bloating, chest pain, abdominal pain Post-op diagnosis: same Procedure & Clinicians Study performed: EGD with biopsies Same procedure as scheduled: Yes Indications: GERD, bloating, chest pain, abdominal pain Surgeon: Nirav Hein Procedure Notes SCOAP/Timeout: Done Procedure in detail: After the risks and benefits were explained, written and verbal informed consent was obtained. The patient was brought into the procedure room and placed into the left lateral decubitus position. Please see anesthesia notes for sedation details. The scope was introduced into the mouth through the bite block and advanced under direct visualization to the 2nd portion of the duodenum. The scope was slowly withdrawn carefully examining the mucosa for any defects or lesions. Retroflexed views were accomplished in the stomach. The stomach was decompressed, the scope was then removed from the patient who tolerated the procedure well. Sedation minutes: 9 Complications: none Impression: 1. Duodenum: There was a linear erosion noted in the duodenal bulb which was targeted for biopsy. No mass lesions no excavated ulcers. D2 appeared normal. In light of the bloating symptoms, biopsies were acquired from D2 for exclusion of sprue. 2. Stomach: There were a few very subtle diminutive erosive features in the antrum. Otherwise no ulcers and no mass lesions. I took a biopsy from a subtle erosion in the antrum to exclude H pylori or other pathology. Retroflexed views of the LES disclosed small sliding hiatal hernia with a Hill valve grade 4. 3. Esophagus: The squamocolumnar junction correlated with the top of the gastric folds. The GE junction was at 37 cm from the incisors. Patient had evidence of LA grade B ulcerative esophagitis. On the cardia side of the superficial ulcerative focus was a very subtle nodule. I suspect this is just a function of the inflammatory process but it was targeted for histology. The remainder of the esophagus was unremarkable. Endoscopic diagnosis 1. Small sliding hiatal hernia 2. LA grade B ulcerative esophagitis 3. Erosive gastro duodenopathy Post-procedure Plan for aftercare: 1. Await histology. 2. Avoid NSAIDs 3. If Helicobacter is found, it will need to be eradicated with standard triple therapy. 4. Reinitiate omeprazole 20 mg [id number] twice daily for 10-14 days then reducing down to once daily thereafter. This needs to be taken 30-60 minutes before the 1st meal of the day on an empty stomach. 5. Follow up GI clinic. Disposition: PACU
[2024-02-14 10:00] VITALS: BP 106/62; PULSE 54; RESP 16; TEMP 36.6; O2SAT 97
[2024-02-14 10:06] VITALS: BP 109/68; PULSE 52; RESP 15; TEMP 36.4; O2SAT 98
[2024-02-14 10:14] VITALS: BP 108/65; PULSE 50; RESP 15; TEMP 36.5; O2SAT 98
== END 2024-02-14 10:30 | disposition home or self-care (01) ==
PROVIDERS: Referring Provider Internal Medicine Gastroenterology; Visit Provider Internal Medicine Gastroenterology
PROC: 0DJ08ZZ Inspection of Upper Intestinal Tract, Via Natural or Artificial Opening Endoscopic (ICD-10-PCS; CPT 43235; principal; 2024-02-14 09:00)
DX: K21.9 Gastro-esophageal reflux disease without esophagitis (principal); K22.10 Ulcer of esophagus without bleeding; K44.9 Diaphragmatic hernia without obstruction or gangrene; K26.9 Duodenal ulcer, unspecified as acute or chronic, without hemorrhage or perforation
CPT/HCPCS: 43239; J2704

== ENCOUNTER 2024-05-22 08:23 | Day surgery (SDC) | payer OTHER, SELFPAY ==
--- NOTE | 2024-05-22 | PATH_ITS ---
[facility] Accession Number: [id number] No. of containers..01 Tissue . 01 Material submitted: . stomach - STOMACH . 01 Diagnosis: Stomach, biopsy: - Oxyntic, and antral gastric mucosa with mild reactive gastropathy. - No H. Pylori like organisms identified (by the H/E and immunohistochemical stained slide sections). - No intestinal metaplasia, dysplasia or malignancy identified. - See comment: -- COMMENT: H. Pylori immunohistochemical stain was performed and is negative. Technical Note: This test was developed, and the performance characteristics were validated by [employer]. It has not been cleared or approved by the Food and Drug Administration. TXN 05/25/2024 1226 Local . 01 Electronically signed: . Cl Forrester MD, Pathologist NPI- [id number] . 01 Gross description: . Received in formalin with two patient identifiers and stomach biopsy, are two huffman soft tissue fragments 0.3 to 0.4 cm in greatest dimension. Submitted in cassette A1. ([id number]) /MIKAL 05/23/2024 0832 Local . 01 Pathologist provided ICD-10: K21.00 . 01 CPT . 598470, [id number] Specimen Comment: A courtesy copy of this report has been sent to [phone] Performed at: [address] [address], [place], [place] [id number] MD Sylvain Maguire MD Phone: [phone]
[2024-05-22 08:40] VITALS: BP 127/85; PULSE 74; RESP 16; TEMP 36.8; O2SAT 95
--- NOTE | 2024-05-22 09:05 | PM.HP.1 ---
History of Present Illness History of Present Illness Date Patient Seen: 05/22/24 Chief complaint: SDC Narrative: Dyspepsia and GE reflux PFSH Medical History Gout Surgical History Status post shoulder surgery History of bunionectomy Social History Smoking Status: Former smoker alcohol intake: current Meds Home Medications and Allergies Home Medications Medication Instructions Recorded Confirmed Type albuterol sulfate 90 mcg/actuation 2 puff inhalation Q4H PRN 08/09/18 05/22/24 Rx aerosol inhaler cough/tight chest #8.5 grams allopurinol 300 mg tablet 300 mg PO DAILY 02/14/24 05/22/24 History cetirizine 10 mg tablet 10 mg PO DAILY 05/22/24 05/22/24 History escitalopram oxalate 10 mg tablet 10 mg PO DAILY 05/22/24 05/22/24 History fluticasone propionate 50 2 spray intranasal DAILY 05/22/24 05/22/24 History mcg/actuation nasal spray,suspension indomethacin 25 mg capsule 25 mg PO BID PRN Gout 05/22/24 05/22/24 History omeprazole 40 mg capsule,delayed 40 mg PO DAILY 05/22/24 05/22/24 History release Allergies Allergy/AdvReac Type Severity Reaction Status Date / Time latex Allergy Blister Verified 05/22/24 08:53 Exam Vital Signs (past 8 hours): - 05/22/24 08:40 Temperature 98.3 F Pulse Rate 74 Respiratory Rate 16 Blood Pressure 127/85 Pulse Oximetry 95 Oxygen Delivery Method Room Air Oxygen Delivery Method Room Air Narrative Exam Narrative: Oropharynx free of lesion Assessment & Plan Assessment & Plan narrative: Dyspepsia and GE reflux poorly responsive to medications. Need for EGD for diagnosis and treatment. Risks, benefits, alternatives have been explained. Time-Based Coding :: [TOTAL MINUTES] spent with patient and on the chart (including review of chart, obtaining history, exam, reviewing outside data, placing orders, documenting exam and treatment plan, and counseling patient) on [DATE].
--- NOTE | 2024-05-22 09:06 | PM.OP.EGD ---
Operative Date/Time/Diagnoses Date of procedure: 05/22/24 Pre-op diagnosis: See indication and findings Procedure & Clinicians Study performed: EGD Indications: Dyspepsia and GE reflux Surgeon: Lamonte Banegas Procedure Notes Procedure in detail: After informed consent was obtained the patient was placed in left lateral decubitus position. The video upper scope was placed into the oropharynx and with the patient's help swallowed into the esophagus. The esophagus stomach and duodenal were carefully examined. On withdrawal, retroflexed view the GE junction was performed. The scope was removed. The patient tolerated procedure well. Blood loss none Complications none Sedation mac Findings 1. Completely normal esophagus with normal squamocolumnar junction 2. Patchy gastric erythema biopsies taken to rule out Helicobacter 3. Normal duodenal bulb and sweep Will be in touch regarding biopsies but should have the patient follow-up with primary hotel operation manager if symptoms continue.
[2024-05-22 09:27] VITALS: BP 125/81; PULSE 78; RESP 10; TEMP 36.1; O2SAT 97
[2024-05-22 09:32] VITALS: BP 123/76; PULSE 77; RESP 20; TEMP 36.1; O2SAT 95
[2024-05-22 09:40] VITALS: BP 119/94; PULSE 80; RESP 12; O2SAT 97
[2024-05-22 09:47] VITALS: BP 127/86; PULSE 65; RESP 14; TEMP 36.5; O2SAT 99
== END 2024-05-22 09:48 | disposition home or self-care (01) ==
PROVIDERS: Referring Provider Internal Medicine Gastroenterology; Visit Provider Internal Medicine Gastroenterology
PROC: 0DJ08ZZ Inspection of Upper Intestinal Tract, Via Natural or Artificial Opening Endoscopic (ICD-10-PCS; CPT 43239; principal; 2024-05-22 09:30)
DX: R13.10 Dysphagia, unspecified (principal); K21.9 Gastro-esophageal reflux disease without esophagitis; K31.9 Disease of stomach and duodenum, unspecified
CPT/HCPCS: 43239; 36415; 72100; 80053; 81003; 85025; 96365; 96375; 99284; J0134; J1100; J2704

== ENCOUNTER 2024-05-22 21:39 | Emergency (ER) | payer OTHER, SELFPAY ==
[2024-05-22 22:03] VITALS: BP 124/81; PULSE 91; RESP 18; TEMP 37.4; O2SAT 96; BMI 31.1
--- NOTE | 2024-05-22 23:20 | ED.GENADULT ---
HPI - General Adult General Chief complaint: Urogenital-Male Stated complaint: pain, back to rt groin area Time Seen by Provider: 05/22/24 22:59 Source: patient Mode of arrival: Ambulatory History of Present Illness HPI narrative: 34yoM with PMH gout presents for evaluation of 1 day of right-sided buttock pain that radiates down to his legs. Triage note states flank and lower abdominal pain, however when patient was asked to point where his pain is he repeatedly points to his buttock as source of pain. Pain radiates down his leg and wraps around the front of his thigh. Earlier today patient had upper endoscopy to evaluate for gastric ulcers. After waking up from sedation he stated that his pain was gone, but after returning home he had recurrence of the pain. 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 No medications taken at home prior to arrival. Denies bowel or bladder incontinence, denies saddle anesthesia. Pain improved by standing up, worse with lying down. Related Data Home Medications Medication Instructions Recorded Confirmed allopurinol 300 mg tablet 300 mg PO DAILY 02/14/24 05/22/24 cetirizine 10 mg tablet 10 mg PO DAILY 05/22/24 05/22/24 escitalopram oxalate 10 mg tablet 10 mg PO DAILY 05/22/24 05/22/24 fluticasone propionate 50 2 spray intranasal DAILY 05/22/24 05/22/24 mcg/actuation nasal spray,suspension indomethacin 25 mg capsule 25 mg PO BID PRN Gout 05/22/24 05/22/24 omeprazole 40 mg capsule,delayed 40 mg PO DAILY 05/22/24 05/22/24 release Previous Rx's Medication Instructions Recorded albuterol sulfate 90 mcg/actuation 2 puff inhalation Q4H PRN 08/09/18 aerosol inhaler cough/tight chest #8.5 grams methocarbamol 500 mg tablet 500 mg PO TID #60 tabs 05/23/24 methylprednisolone 4 mg tablets in See Rx Instructions PO .COMPLEX 05/23/24 a dose pack (Medrol (Jamaal)) #21 ea Allergies Allergy/AdvReac Type Severity Reaction Status Date / Time latex Allergy Blister Verified 05/22/24 08:53 Patient History Medical History Gout Surgical History Status post shoulder surgery History of bunionectomy Social History Smoking Status: Current every day smoker alcohol intake: current Smoking Status: Current every day smoker tobacco type: vaping alcohol intake frequency: holidays/special occasions only Substance Use Type: does not use Exam Initial Vital Signs Initial Vital Signs: Vital Signs Temperature 99.4 F 05/22/24 22:03 Pulse Rate 91 H 05/22/24 22:03 Respiratory Rate 18 05/22/24 22:03 Blood Pressure 124/81 05/22/24 22:03 Pulse Oximetry 96 05/22/24 22:03 Oxygen Delivery Method Room Air 05/22/24 22:03 Const: Awake, alert, no acute distress, nontoxic appearing Cardiac: regular rate, regular rhythm RESP: unlabored, clear bilaterally, no wheezing GI: Soft, nontender, nondistended MSK back: No midline tenderness, no CVA tenderness bilaterally Lower extremities: Positive straight leg raise RLE. Negative straight leg raise LLE Skin: Warm, Dry, intact, no rashes Neuro: AO x3, CN II-XII grossly intact, moves all extremities Course Orders Ordered: ED Orders 05/22/24 23:19 XR lumbar spine 2-3V Stat 05/22/24 23:40 CBC Auto Diff [Complete Blood Count AUTO DIFF] Stat CMP [Comprehensive Metabolic Panel] Stat Discontinued Medications Dexamethasone (Dexamethasone 10 Mg/Ml Vial) 10 mg IV NOW ONE Stop: 05/22/24 23:20 Last Admin: 05/22/24 23:53 Dose: 10 mg Documented By: MARGIE Acetaminophen (Ofirmev) 1,000 mg in 100 mls @ 400 mls/hr IV NOW ONE Stop: 05/22/24 23:33 Last Infusion: 05/23/24 00:18 Dose: Infused Documented By: Admin: 05/22/24 23:53 Dose: 400 mls/hr Documented By: MARGIE Methocarbamol (Methocarbamol 500 Mg Tablet) 750 mg PO NOW ONE Stop: 05/22/24 23:20 Last Admin: 05/22/24 23:52 Dose: 750 mg Documented By: KW Vital Signs Vital signs: Vital Signs - 8 hr 05/22/24 22:03 05/23/24 00:35 Temperature 99.4 F 98.2 F Pulse Rate 91 H 71 Respiratory Rate 18 17 Blood Pressure 124/81 107/71 Pulse Oximetry 96 97 Oxygen Delivery Method Room Air Room Air Medical Decision Making Lab Data 05/22/24 23:40 05/22/24 23:40 Labs: Lab Results 05/22/24 Range/Units 23:40 WBC 5.3 (4.5-11.0) X10^3/uL RBC 4.50 (4.5-5.9) X10^6/uL Hgb 14.7 (13.5-17.5) g/dL Hct 43.2 (41-53) % MCV 95.9 (80-100) fL MCH 32.6 (26-34) PG MCHC 34.0 (30-36) % RDW 12.5 (11.6-14.8) % Plt Count 255 (150-400) X10^3/uL Neut % (Auto) 64.1 (50-75) % Lymph % (Auto) 19.6 L (25-40) % [place] % (Auto) 15.3 H (3-14) % Eos % (Auto) 0.6 L (2-4) % Baso % (Auto) 0.4 (0-2) % Neut # (Auto) 3400 (3734-0223) /uL Lymph # (Auto) 1000 L (9261-1948) /uL [place] # (Auto) 800 (0-900) /uL Eos # (Auto) 0 (0-450) /uL Baso # (Auto) 0 (0-100) /uL Sodium 138 (137-145) mmol/L Potassium 3.6 (3.4-5.1) mmol/L Chloride 106 (98-107) mmol/L Carbon Dioxide 25 (22-32) mmol/L BUN 14 (9-20) mg/dL Creatinine 1.38 H (0.66-1.25) mg/dL Estimated GFR > 60 (>60) mL/min BUN/Creatinine Ratio 10.1 (6-22) Glucose 126 H (70-100) mg/dL Calcium 9.3 (8.4-10.2) mg/dL Total Bilirubin 0.5 (0.2-1.3) mg/dL AST 53 (17-59) IU/L ALT 66 H (<50) IU/L Alkaline Phosphatase 82 (38-126) U/L Total Protein 7.6 (6.3-8.2) g/dL Albumin 4.7 (3.5-5.0) g/dL Globulin 2.9 (1.7-4.1) g/dL Albumin/Globulin Ratio 1.6 (1.0-2.8) Urine Dip Bedside Urine Glucose Negative Bedside Urine Bilirubin - Negative Bedside Urine Ketone - Negative Urine Specific [place] 1.020 Bedside Urine Occult Blood - Negative Bedside Urine pH 6.0 Bedside Urine Protein - Negative Bedside Urine Urobilinogen - Negative Bedside Urine Nitrite - Negative Bedside Urine Leukocytes - Negative Esterase Point of care testing: Urine Dip Bedside Urine Glucose Negative Bedside Urine Bilirubin - Negative Bedside Urine Ketone - Negative Urine Specific [place] 1.020 Bedside Urine Occult Blood - Negative Bedside Urine pH 6.0 Bedside Urine Protein - Negative Bedside Urine Urobilinogen - Negative Bedside Urine Nitrite - Negative Bedside Urine Leukocytes - Negative Esterase Imaging Data Extremity x-ray #1: Radiologist's Impression: PROCEDURE: XR LUMBAR SPINE 2-3V INDICATIONS: sciatic pain TECHNIQUE: 3 views of the lumbar spine were acquired. COMPARISON: [facility], CT, CT ABDOMEN PELVIS W CON, 10/25/2023, 13:11. FINDINGS: Bones: 5 [id number] vertebrae are present. Minimal levocurvature. No vertebral body compression fractures. No suspicious bony lesions. Soft tissues: Overlying bowel gas pattern is normal. No suspicious soft tissue calcifications. IMPRESSION: No acute osseous abnormalities. No significant degenerative changes. Dictated by: Juan A Mason M.D. on 05/22/2024 at 23:40 Approved by: Juan A Mason M.D. on 05/22/2024 at 23:41 [facility] Narrative Medical decision making narrative: Well-appearing patient with 1 day of pain radiating down from his right buttock. Exam consistent with sciatic pain. Patient reports concern with his kidney stating that he thinks that they may be involved, however based on exam and presentation this is unlikely. Basic laboratory work ordered for patient reassurance. Point of care urinalysis negative for blood, protein, or infection. Creatinine mildly elevated, 1.38 today compared to 1.00 10/25/23, however GFR greater than 60 in both incidences. Patient reported feeling improved after Tylenol, steroids, muscle relaxers. X-ray imaging negative for acute findings. Patient counseled on lab and imaging findings. He was advised to continue to take Tylenol for pain, care should be taken with ibuprofen unless otherwise instructed by primary care doctor. Muscle relaxers and steroids sent to pharmacy of choice. Discharge Plan Departure Patient Disposition: Home Clinical Impression: Right sciatic nerve pain Instructions: DI for Sciatica Activity Restrictions/Additional Instructions: Your physical exam suggest that you have sciatic back pain. This is irritation and inflammation of the sciatic nerve. Take Tylenol, muscle relaxers, the steroids to help your pain. You may also take low-dose ibuprofen. Your creatinine, or kidney function was slightly high today, but your function was good. Follow up with your primary care doctor, especially if you have continuing pains. Prescriptions: New methocarbamol 500 mg tablet 500 mg PO TID Qty: 60 0RF methylprednisolone [Medrol (Jamaal)] 4 mg tablets,dose pack See Rx Instructions .ROUTE .COMPLEX Qty: 21 0RF Rx Instructions: for 6 days No Action allopurinol 300 mg tablet 300 mg PO DAILY albuterol sulfate 90 mcg/actuation HFA aerosol inhaler 2 puff INHALATION Q4H PRN (Reason: cough/tight chest) Qty: 8.5 0RF Rx Instructions: use q2-4h prn. Use with spacer. Ok to subst. cetirizine 10 mg tablet 10 mg PO DAILY omeprazole 40 mg Capsule,Delayed Release(Dr/Ec) 40 mg PO DAILY indomethacin 25 mg capsule 25 mg PO BID PRN (Reason: Gout) fluticasone propionate 50 mcg/actuation spray,suspension 2 spray intranasal DAILY escitalopram oxalate 10 mg tablet 10 mg PO DAILY Referrals: Provider,Annie BENJAMIN [Primary Care Provider] - Stand Alone Forms: Patient Portal/API/Survey, Work Release Note
[2024-05-22] MEDS: methocarbamoL 500 MG TABLET 750 MG PO (23:52)
[2024-05-22] MEDS: ACETAMINOPHEN IV 1,000 MG/100 ML VIAL 400 MG IV (23:53)
[2024-05-22] MEDS: DEXAMETHASONE 10 MG/ML VIAL IV (23:53)
[2024-05-22 23:54] LABS: Add Manual Diff / Slide Review NO; Basophils Absolute Auto 0 /uL (0-100); Basophils Percent Auto 0.4 % (0-2); Eosinophils Absolute Auto 0 /uL (0-450); Eosinophils Percent Auto 0.6 % (2-4); Hematocrit 43.2 % (41-53); Hemoglobin 14.7 g/dL (13.5-17.5); Lymphocytes Absolute Auto 1000 /uL (1100-4500); Lymphocytes Percent Auto 19.6 % (25-40); Mean Corpuscular Hemoglobin 32.6 PG (26-34); Mean Corpuscular Volume 95.9 fL (80-100); Monocytes Absolute Auto 800 /uL (0-900); Monocytes Percent Auto 15.3 % (3-14); Neutrophils Absolute Auto 3400 /uL (1500-7000); Neutrophils Percent Auto 64.1 % (50-75); Platelet Count 255 X10^3/uL (150-400); Red Cell Distribution Width 12.5 % (11.6-14.8); White Blood Cell Count 5.3 X10^3/uL (4.5-11.0)
[2024-05-23 00:11] LABS: Alanine Aminotransferase 66 IU/L (<50); Albumin 4.7 g/dL (3.5-5.0); Albumin Globulin Ratio 1.6 (1.0-2.8); Alkaline Phosphatase 82 U/L (38-126); Aspartate Aminotransferase 53 IU/L (17-59); BUN Creatinine Ratio 10.1 (6-22); Bilirubin Total 0.5 mg/dL (0.2-1.3); Blood Urea Nitrogen 14 mg/dL (9-20); Calcium 9.3 mg/dL (8.4-10.2); Carbon Dioxide 25 mmol/L (22-32); Chloride 106 mmol/L (98-107); Estimated Glomerular Filt Rate > 60 mL/min (>60); Globulin 2.9 g/dL (1.7-4.1); Glucose 126 mg/dL (70-100); HEMOLYSIS < 15 (0-50); Potassium 3.6 mmol/L (3.4-5.1); Sodium 138 mmol/L (137-145); Total Protein 7.6 g/dL (6.3-8.2)
[2024-05-23 00:35] VITALS: BP 107/71; PULSE 71; RESP 17; TEMP 36.8; O2SAT 97
== END 2024-05-23 00:36 | disposition home or self-care (01) ==
PROVIDERS: Emergency Provider Emergency Medicine
DX: M54.31 Sciatica, right side (principal)
CPT/HCPCS: 36415; 72100; 80053; 81003; 85025; J0134; J1100